=== PATIENT | female | born 2000 | race Caucasian/White ===

== ENCOUNTER 2024-02-15 12:09 | Emergency (ER) | payer BC, SELFPAY ==
[2024-02-15 12:29] VITALS: BP 103/70; PULSE 84; RESP 16; TEMP 36.5; O2SAT 98
--- NOTE | 2024-02-15 13:14 | ED.SKABFB ---
HPI - Skin/Abscess/Foreign Bdy General Chief complaint: Skin/Abscess/Foreign Body Stated complaint: Rash Time Seen by Provider: 02/15/24 12:48 Source: patient and RN notes reviewed Mode of arrival: ambulatory Limitations: no limitations History of Present Illness HPI narrative: Patient presents today complaining of a rash to her left forehead that extends to the left mormonism and upper cheek that she noted this morning. Denies itching or pain. She also noted some swelling to her left lower eyelid at this time. Denies contact with any new products, medications, plantar animal contact. Upon her exam, RN noted some droop to the left lateral mouth and flattening to the left nasolabial fold and summoned me to the bedside. Denies headache, dizziness, nausea, vomiting, weakness, vision changes Patient does not have history of chickenpox Related Data Home Medications Medication Instructions Recorded Confirmed levonorgestrel-ethinyl estradiol tablet 02/15/24 02/15/24 0.1 mg-20 mcg tablet (Vienva) sertraline 50 mg tablet 50 mg PO AC 02/15/24 02/15/24 Allergies Allergy/AdvReac Type Severity Reaction Status Date / Time No Known Allergies Allergy Verified 02/15/24 12:44 Review of Systems Review of Systems: CONSTITUTIONAL: Denies body aches, fever, chills, or sweats. EYES: Denies visual changes, redness, or discharge. ENT: Denies rhinorrhea, congestion, sore throat, or otalgia. CARDIOVASCULAR: Denies chest pain, palpitations, or edema. RESPIRATORY: Denies cough or dyspnea. GASTROINTESTINAL: Denies abdominal pain, nausea, vomiting, or diarrhea. GENITOURINARY: Denies dysuria or hematuria. SKIN: Denies itching, or wounds.+ rash to left forehead MUSCULOSKELETAL: Denies back pain, joint pain, or myalgia. NEUROLOGIC: Denies headache, numbness, tingling, or weakness. PSYCH: Denies depression or anxiety. PMFSH Comments At time of signature, I have reviewed and agree with nursing past medical, surgical, social and family history unless otherwise noted. Please see nursing chart for further information. There is no relevant family history pertinent to the presenting complaint Exam Narrative: GENERAL: Well-appearing, well-nourished, and in no acute distress. HEAD: Normocephalic, atraumatic. EYES: EOMI. PERRL. No nystagmus. No redness or drainage. Conjunctivae normal. Eyelids close completely bilaterally. Eyelid strength to open is normal bilaterally. ENT: Mucous membranes pink and moist. NECK: Normal AROM. CHEST: No respiratory distress. Clear to auscultation. HEART: Regular rate and rhythm. No murmur appreciated. Normal peripheral pulses. EXTREMITIES: Normal range of motion. No edema. SKIN: Warm, dry. Capillary refill normal. Normal skin turgor. Swath of pink, slightly raised tiny papules started on the left lateral forehead and extend through the mormonism and down portion of the left lateral face. NEURO: Decreased sensation to left face. Asymmetrical smile. Eyebrow lift is symmetrical with forehead unaffected. Hand driftman equal and strong. No pronator drift. Slightly flat left nasal labial fold. Heel to marcelo normal. Gait normal. PSYCH: Normal affect. No signs of depression or anxiety. Course Course Emergency Course: 1305-discussed patient with my collaborating physician, Dr. Asencio. Recommend ER transfer based on patient's current symptoms. 1314-discussed recommendation to transfer with patient given her current symptoms. Patient states she would like to check and see if [facility] takes her insurance specifically before going to transfer. She is calling the number on the back of her card before agreeing to transfer. 1330- Patient would like to be transferred to [facility] Level of Care: Express Care Visit Vital Signs Vital signs: Vital Signs Temperature 97.7 F 02/15/24 12:29 Pulse Rate 84 02/15/24 12:29 Respiratory Rate 16 02/15/24 12:29 Blood Pressure 103/70
== END 2024-02-15 13:55 | disposition short-term general hospital (02) ==
PROVIDERS: Emergency Provider Nurse Practitioner
DX: R29.810 Facial weakness (principal); R21 Rash and other nonspecific skin eruption
CPT/HCPCS: 99212; G0463

== ENCOUNTER 2024-05-15 14:32 | Outpatient (CLI) | payer OTHER, SELFPAY ==
--- NOTE | ~2024-05-15 | XR_ITS ---
EXAMINATION: XR chest 2V DATE: 05/15/2024 14:47 INDICATION: Acute cough TECHNIQUE: PA and lateral views of the chest were obtained. COMPARISON: None FINDINGS: Focal airspace opacity lingula suspicious for pneumonia. Right of the lungs are clear. No pulmonary e suma, pleural effusion or pneumothorax. The cardiomediastinal silhouette is normal. Visualized bones and soft tissues are unremarkable. IMPRESSION: 1. Lingular pneumonia. Reviewed, dictated and finalized at location A. IMPRESSION: 1. Lingular pneumonia.
== END 2024-05-15 14:33 | disposition home or self-care (01) ==
DX: J18.1 Lobar pneumonia, unspecified organism (principal)
CPT/HCPCS: 71046